=== PATIENT | female | born 1965 | race Caucasian/White ===

== ENCOUNTER → 2017-10-28 | Outpatient (CLI) | payer OTHER, MEDICARE ==
[~2017-10-28] MED LIST: ALPR1TAB2 PO; ASCO500T12 PO; CA C1TAB60 PO; CELE200C PO; CYAN1TAB29 PO; CYCL1DRO EACHEYE; DIAZ10TA PO; ESTR1TAB17 PO; ESTROGEN TD; FLAX1CAP PO; FOLI-17 PO; FURO40TA6 PO; HYDR200T PO; LORA10TA3 PO; LOTE5DRO3 EACHEYE; METH25VI57 IM; MULT-658 PO; NAPR220C2 PO; OMEG1CAP6 PO; OMNIPAQUE 350 MG/ML, 100ML BOTTLE ONE; RABE20TA18 PO; VITAMIN B12 IM; [UNRECOGNIZED DRUG - CODE]
== END ==
LOC: RAD 11:18
PROVIDERS: ATTEND Family Medicine
DX: R10.9 Unspecified abdominal pain (principal); Z90.49 Acquired absence of other specified parts of digestive tract
CPT/HCPCS: 74177; Q9967

== ENCOUNTER → 2017-12-27 | Outpatient (CLI) | payer OTHER, MEDICARE ==
[~2017-12-27] MED LIST changes: -HYDR200T PO; +HYDR200T72 PO; -OMNIPAQUE 350 MG/ML, 100ML BOTTLE ONE
== END | disposition home or self-care (01) ==
LOC: CVU 07:43
PROVIDERS: ATTEND Internal Medicine Cardiovascular Disease
DX: I10 Essential (primary) hypertension (principal); M32.9 Systemic lupus erythematosus, unspecified
CPT/HCPCS: 93017; 93306

== ENCOUNTER → 2018-05-09 | Outpatient (CLI) | payer OTHER, MEDICARE ==
[~2018-05-09] MED LIST changes: +OMNIPAQUE 350 MG/ML, 100ML BOTTLE ONE
== END | disposition home or self-care (01) ==
LOC: CFH 10:05
PROVIDERS: ATTEND Physician Assistant
DX: K63.2 Fistula of intestine (principal)
CPT/HCPCS: 74177; Q9967

== ENCOUNTER → 2019-08-18 | Outpatient (CLI) | payer OTHER, MEDICARE ==
[~2019-08-18] MED LIST changes: +ALPR0.5T7 PO; +ASCO-254 PO; -ASCO500T12 PO; +AZAT50TA9 PO; +DIAZ5TAB PO; +ESTR0.6246 PO; +GABA300C10 PO; +LORA-247 PO; -LORA10TA3 PO; -OMNIPAQUE 350 MG/ML, 100ML BOTTLE ONE
[2019-08-18 15:38] LABS: BASOPHILS # (AUTO) 0.05 x10^3/uL (0-0.1); BASOPHILS % (AUTO) 1 % (0-1); EOSINOPHILS # (AUTO) 0.06 x10^3/uL (0-0.4); EOSINOPHILS % (AUTO) 1 % (1-7); LYMPHOCYTES % (AUTO) 16 % (22-44); MD NO; MEAN CORPUSCULAR HEMOGLOBIN 31.5 pg (27.0-34.8); MEAN CORPUSCULAR HGB CONC 32.9 g/dL (32.4-35.8); MEAN CORPUSCULAR VOLUME 95.9 fL (80-100); MEAN PLATELET VOLUME 7.5 fL (7.4-10.4); MONOCYTES # (AUTO) 0.47 x10^3/uL (0.2-0.8); MONOCYTES % (AUTO) 8 % (2-9); NEUTROPHILS % (AUTO) 75 % (42-75); PLATELET COUNT 334 x10^3/uL (130-400); RED BLOOD COUNT 4.35 x10^6/uL (3.82-5.3); RED CELL DISTRIBUTION WIDTH 14.8 % (9.6-15.2)
[2019-08-18 15:46] LABS: ANION GAP 6 mmol/L (5-15); CALCIUM 9.1 mg/dL (8.5-10.1); CHLORIDE 108 mmol/L (98-107); CREATININE 0.86 mg/dL (0.55-1.02)
[2019-08-18 15:54] LABS: INTERNATIONAL NORMALIZED RATIO 0.94 (0.93-1.1); PROTHROMBIN TIME 9.9 Seconds (9.6-11.5)
[2019-08-18 16:09] LABS: HEMOGLOBIN A1C 5.3 % (4.2-6.3)
== END | disposition home or self-care (01) ==
LOC: STAR 14:20
PROVIDERS: ATTEND Orthopaedic Surgery Orthopaedic Surgery of the Spine
DX: Z01.818 Encounter for other preprocedural examination (principal); M13.88 Other specified arthritis, other site
CPT/HCPCS: 36415; 71046; 80048; 83036; 85025; 85610; 85651; 85730; 93005

== ENCOUNTER 2019-08-25 07:54 | Inpatient (IN) | payer OTHER, MEDICARE ==
[~2019-08-25] VITALS: Ht 160 cm; Wt 59.9 kg
[~2019-08-25 07:54] MED LIST changes: +BUPIVACAINE/PF 0.5% ONE; +EPINEPHRINE 1 MG/ML, 1ML ONE; +VANCOMYCIN 500 MG ONE
[2019-08-25] MEDS ORDERED: VANCOMYCIN PMX 1GM/200ML 200 ML IV ONE (08:09)
[2019-08-25 08:20] VITALS: BP 112/75
[2019-08-25] MEDS ORDERED: LACTATED RINGERS 1,000 ML IV SCH (08:25)
[2019-08-25] MEDS ORDERED: SCOPOLAMINE PATCH, 1.5MG PATCH.TD72 TD ONE ×2 (08:27→08:30)
[2019-08-25] MEDS ORDERED: GABAPENTIN 300 MG CAPSULE ONE (08:28)
[2019-08-25] MEDS ORDERED: ACETAMINOPHEN 500 MG TABLET ONE (08:28)
[2019-08-25] MEDS ORDERED: GABAPENTIN 300 MG CAPSULE PO ONE (08:30)
[2019-08-25] MEDS ORDERED: ACETAMINOPHEN 500 MG TABLET PO ONE (08:30)
[2019-08-25] MEDS ORDERED: FENTANYL PF 250 MCG/5ML ONE (08:43)
[2019-08-25] MEDS ORDERED: MIDAZOLAM 1 MG/ML, 2ML ONE (08:43)
[2019-08-25] MEDS ORDERED: PROPOFOL 10 MG/ML, 20ML ONE (08:48)
[2019-08-25] MEDS ORDERED: NEOSTIGMINE 1 MG/ML, 10ML ONE (08:48)
[2019-08-25] MEDS ORDERED: ROCURONIUM 10MG/ML,5ML ONE (08:48)
[2019-08-25] MEDS ORDERED: CEFAZOLIN 1,000 MG ONE (08:48)
[2019-08-25] MEDS ORDERED: GLYCOPYRROLATE 0.2MG/1ML, 5ML ONE (08:48)
[2019-08-25] MEDS ORDERED: ONDANSETRON 2MG/ML, 2ML ONE (08:48)
[2019-08-25] MEDS ORDERED: DEXAMETHASONE 4 MG/ML, 1ML ONE (08:48)
[2019-08-25] MEDS ORDERED: PROPOFOL 50 ML ONE (08:49)
[2019-08-25] MEDS ORDERED: hydrALAzine 20 MG/ML, 1ML IV PRN (09:30)
[2019-08-25] MEDS ORDERED: MEPERIDINE/PF 25MG/ML,1ML IVPush PRN (09:30)
[2019-08-25] MEDS ORDERED: HALOPERIDOL 5 MG/ML IV PRN (09:30)
[2019-08-25] MEDS ORDERED: LABETALOL 5 MG/ML SYR. (IV ONLY) IV PRN (09:30)
[2019-08-25] MEDS ORDERED: PROMETHAZINE 25 MG/ML, 1ML IV PRN (09:30)
[2019-08-25] MEDS ORDERED: HYDROmorphone 2 MG/ML, 1ML IVPush PRN (09:30)
[2019-08-25] MEDS ORDERED: OXYcodone 5 MG/5 ML ORAL.SOL UDC PO PRN (09:30)
[2019-08-25] MEDS ORDERED: FENTANYL PF 100 MCG/2ML IV PRN (09:30)
[2019-08-25] MEDS ORDERED: SUCCINYLCHOLINE 20 MG/ML, 10ML ONE (09:42)
[2019-08-25] MEDS ORDERED: ACETAMINOPHEN 650 MG/20.3 ML UDC ONE (11:19)
[2019-08-25] MEDS ORDERED: ACETAMINOPHEN 325 MG TABLET PO PRN (12:30)
== END 2019-08-25 13:15 | disposition home or self-care (01) | DRG 460 ==
LOC: ORIP 07:54 → EDSTATUS 11:30
PROVIDERS: ADMIT Orthopaedic Surgery Orthopaedic Surgery of the Spine; ATTEND Orthopaedic Surgery Orthopaedic Surgery of the Spine
PROC: 0SG807Z Fusion of Left Sacroiliac Joint with Autologous Tissue Substitute, Open Approach (ICD-10-PCS; 2019-08-25)
PROC: 0SP804Z Removal of Internal Fixation Device from Left Sacroiliac Joint, Open Approach (ICD-10-PCS; 2019-08-25)
PROC: 4A11X4G Monitoring of Peripheral Nervous Electrical Activity, Intraoperative, External Approach (ICD-10-PCS; principal; 2019-08-25 09:30)
DX: T84.84XA Pain due to internal orthopedic prosthetic devices, implants and grafts, initial encounter (principal); Y83.1 Surgical operation with implant of artificial internal device as the cause of abnormal reaction of the patient, or of later complication, without mention of misadventure at the time of the procedure; M47.898 Other spondylosis, sacral and sacrococcygeal region; M46.1 Sacroiliitis, not elsewhere classified
CPT/HCPCS: 72202; 76000; S0020; 95938; 95941; C1713; J0171; J0690; J1100; J2250; J2405; J2704; J2710; J3010; J3370; C1762; J0330; J7120

== ENCOUNTER → 2019-11-08 | Outpatient (CLI) | payer MEDICARE, OTHER ==
[~2019-11-08] MED LIST changes: -BUPIVACAINE/PF 0.5% ONE; -EPINEPHRINE 1 MG/ML, 1ML ONE; +GADOTERATE 7.5 MMOL/15 ML SYR ONE; -VANCOMYCIN 500 MG ONE
== END | disposition home or self-care (01) ==
LOC: RAD 12:52
PROVIDERS: ATTEND Orthopaedic Surgery Orthopaedic Surgery of the Spine
DX: M51.36 Other intervertebral disc degeneration, lumbar region (principal); M48.061 Spinal stenosis, lumbar region without neurogenic claudication; M48.07 Spinal stenosis, lumbosacral region
CPT/HCPCS: 72158; A9575